=== PATIENT | female | born 1990 | race Caucasian/White ===

== ENCOUNTER 2018-12-16 07:31 | Inpatient (IN) | payer OTHER ==
[~2018-12-16] VITALS: Ht 167.6 cm; Wt 80.0 kg
[2018-12-16] VITALS (33 sets, daily range): BP systolic 104–146; BP diastolic 56–89; PULSE 71–121; TEMP 97.7–98.6
[~2018-12-16 07:31] MED LIST: MOTRIN 800800 MG/TAB PO; PERCOCET 325 MG1 TA2 PO; PRENATAL1 TA7 PO
--- NOTE | 2018-12-16 07:35 | NUR ---
0735-G2L1 40.2 WEEK GBS+ Patient of Dr. Moreira ambulatory to LR 3 for induction of labor. Assisted patient into gown and onto bed. Oriented to room and updated on plan of care. 0755-IV to left wrist, blood collected and sent to lab per orders. Patient tearful, denies pain and reports "busy emotional morning." 0758-LR and Pen G for GBS + protocol see EMAR. 0808-Pitocin per protocol, see EMAR 0810- to room. Updated on plan of care. 0812-SVE by /, AROM clear fluid noted.
[2018-12-16 08:17] LABS: BASO % 0.4 % (0.0-2.0); EOS # 0.1 (0.0-0.7); EOS % 0.9 % (0-4.0); GRAN # 4.6 (1.4-6.5); GRAN % 68.8 % (42.2-75.2); HEMATOCRIT 35.1 % (37.0-47.0); HEMOGLOBIN 11.1 g/dl (12.5-16.0); LYMPH # 1.4 (1.2-3.4); LYMPH % 20.7 % (20.0-51.0); MEAN CELL VOLUME 80 fl (80.0-100.0); MEAN CORPUSCULAR HEMOGLOBIN 25 pg (27.0-31.0); MEAN CORPUSCULAR HGB CONC 32 g/dl (33.0-37.0); MEAN PLATELET VOLUME 13.8 fl (7.4-10.4); MONO # 0.6 (0.1-0.6); MONO % 8.8 % (1.7-9.3); PLATELET COUNT 190 K/mm3 (130-400); RED BLOOD COUNT 4.38 M/mm3 (4.10-5.30); REDCELL DISTRIBUTION WIDTH-CV 13.1 % (11.5-14.5)
[2018-12-16] MEDS ORDERED: ZANTAC 150MG T150 MG PO (09:51)
--- NOTE | 2018-12-16 10:45 | NUR ---
1045-Patient requests SVE /-2, requests epidural, up to bathroom at this time. Returns to bedside standing. IVF bolus.
--- NOTE | 2018-12-16 10:55 | NUR ---
Miguel,GYM SUPERVISOR arrives on unit at this time. Updated on patients request for epidural.
--- NOTE | 2018-12-16 11:15 | NUR ---
1115-SHANDRA Rivera to patient damián. Patient sitting upright on bedside for epidural placement. 1124-Test dose administered by SHANDRA Rivera. Patient tolerated but reported "slight dizziness." BP remains stable see flow record. Dizziness improved and patient repositioned WL. Difficulty tracing FHR during procedure due to positioning. EFM frequently readjusted. Updated patient on plan of care and safety.
--- NOTE | 2018-12-16 11:59 | NUR ---
1159-FHR decel down to 90 bpm lasting 90 sec, spontaneous return to baseline. SVE by this RN /-2, Brooke to DD, Clear yellow urine return. Repositioned WL. 1210-Dr. John updated on patient. see Physician notification. 1245-Recurrentn deep Variable decels down to 90bpm. SVE /-1, Repositioned WR. 1318-Deep varaible decel down to 70bpm, SVE -/-1. Dr John updated, see physician notification. 1323-FHR decel down to 80bpm lasting three min. Dr. John notified and requested to unit. 1335-Dr. John on unit. SVE by , MD evaluates vertex movement with practice push. Updates patient on plan of care. Repositioned WL.
--- NOTE | 2018-12-16 14:10 | NUR ---
1410-Dr. John to patients room. MD begins pushing with patient through contraction. Moves vertex well. FHR decel down to 70bpm, Pusle ox to maternal index fingger, FHR remains down, Maternal pulse 90bpm. Dr. John discusses plan of care with patient. Pitocin off per MD order. Oxygen via oxymask at 10l/min. 1415-Vacuum placed by Dr. John. 1416-Patient begins pushing with contraction. 1418-Pop off of vacuum, MD replaces Vacuum. 1420-Vacuum pops off a second time. 1421-Spontaneous delivery of infant head. Patient continues to push with contraction for delivery of shoulders and body. Viable male body spontaneously delivered by MD. Mouth and Nares bulb suctioned by MD. Cord clamped x2 and cut by FOB. Cord Gasses obtained per MD orders. Infant to mothers abdomen and care of infant assumed by XENIA Cortes. Apgars 8/9/9. 1425-Spontaneous delivery of intact placenta by MD, fundal massage firm, lochia WNL. EBL 200ml, Ketty care provided. Updated on plan of care and safety.
--- NOTE | 2018-12-16 16:40 | NUR ---
1640-Patient up to bathroom, Voids 600ml clear yellow urine. Patient ambulates with steady gait. Desires to shower. INT covered and patient bathes self. Ambulates to room 207, oriented to room and updated on plan of care.
[2018-12-17 01:30] VITALS: BP 116/69; PULSE 69; TEMP 97.7
[2018-12-17 05:10] VITALS: BP 110/66; PULSE 79; TEMP 97.8
[2018-12-17] MEDS ORDERED: MOTRIN 800800 MG/TAB PO (07:12)
[2018-12-17] MEDS ORDERED: PERCOCET 325 MG1 TA2 PO (07:13)
[2018-12-17 07:54] VITALS: BP 115/76; PULSE 84
--- NOTE | 2018-12-17 10:44 | NUR ---
Initial visit attempt; Consult in Progress, [facility] left card of congratulations for the of their daughter and information regarding the availability of spiritual care at [facility].
[2018-12-17 16:08] VITALS: BP 118/72; PULSE 78
[2018-12-17 20:20] VITALS: BP 118/81; PULSE 88; TEMP 98.6
[2018-12-18 08:30] VITALS: BP 133/82; PULSE 77; TEMP 98.1
--- NOTE | 2018-12-18 11:00 | NUR ---
discharge instructions given, pt verbalizes understanding. No further questions noted. Bands matched and hugs tag removed.
== END 2018-12-18 11:25 | disposition home or self-care (01) | DRG 807 ==
LOC: LDR 07:31 → OB 07:31 → LDR 11:22 → OB 16:45
PROVIDERS: ADMIT Obstetrics & Gynecology
PROC: 10D07Z6 Extraction of Products of Conception, Vacuum, Via Natural or Artificial Opening (ICD-10-PCS; principal; 2018-12-16)
PROC: 3E033VJ Introduction of Other Hormone into Peripheral Vein, Percutaneous Approach (ICD-10-PCS; 2018-12-16)
PROC: 10907ZC Drainage of Amniotic Fluid, Therapeutic from Products of Conception, Via Natural or Artificial Opening (ICD-10-PCS; 2018-12-16)
PROC: 3E0R3BZ Introduction of Anesthetic Agent into Spinal Canal, Percutaneous Approach (ICD-10-PCS; 2018-12-16)
DX: O99.824 Streptococcus B carrier state complicating childbirth (principal); Z37.0 Single live birth; O76 Abnormality in fetal heart rate and rhythm complicating labor and delivery; O69.81X0 Labor and delivery complicated by cord around neck, without compression, not applicable or unspecified; Z3A.40 40 weeks gestation of pregnancy
CPT/HCPCS: J2540; J2590; J7120